=== PATIENT | female | born 1945 | race Caucasian/White ===

== ENCOUNTER 2019-04-28 15:43 | Emergency (ER) | payer MEDICARE ==
[~2019-04-28] VITALS: Ht 162.6 cm; Wt 95.2 kg
[2019-04-28] MEDS ORDERED: ROBAXIN-750750 MG PO (16:24)
[2019-04-28] MEDS ORDERED: ROXICODONE15 MG PO (16:25)
[2019-04-28] MEDS ORDERED: OMEPRAZOLE20 MG PO (16:25)
[2019-04-28] MEDS ORDERED: MAGNESIUM500 MG PO (16:26)
[2019-04-28] MEDS ORDERED: TIZANIDINE HCL4 M1 PO (16:26)
[2019-04-28] MEDS ORDERED: SUCRALFATE1 GM PO (16:26)
[2019-04-28] MEDS ORDERED: BISOPROLOL FUMAR5 MG PO (16:27)
[2019-04-28] MEDS ORDERED: RESTASIS1 DROP OD (16:27)
[2019-04-28] MEDS ORDERED: BUMETANIDE1 MG PO (16:27)
[2019-04-28] MEDS ORDERED: CYANOCOBAL1000 MCG/M IM (16:28)
[2019-04-28] MEDS ORDERED: TIROSINT88 MCG PO (16:28)
[2019-04-28] MEDS ORDERED: FLUNISOLIDE1 SPRAY (16:28)
[2019-04-28] MEDS ORDERED: NITROGLYCERIN0.4 MG SL (16:29)
[2019-04-28] MEDS ORDERED: MIRAPEX0.5 MG PO (16:29)
[2019-04-28] MEDS ORDERED: TRAZODONE HCL100 MG PO (16:29)
[2019-04-28] MEDS ORDERED: MULTIVITAMINS1 EAC7 PO (16:30)
[2019-04-28] MEDS ORDERED: K-TAB ER20 MEQ PO (16:30)
[2019-04-28] MEDS ORDERED: VENTOLIN HFA18 GM INH (16:30)
[2019-04-28] MEDS ORDERED: ASPIR 8181 MG PO (16:31)
[2019-04-28] MEDS ORDERED: COENZYME Q10200 MG PO (16:31)
[2019-04-28] MEDS ORDERED: CHROMIUM PIC1000 MCG PO (16:31)
[2019-04-28] MEDS ORDERED: CLARITIN10 M2 PO (16:32)
[2019-04-28] MEDS ORDERED: RIBOFLAVIN100 MG PO (16:32)
[2019-04-28] MEDS ORDERED: VISTARIL25 MG PO (16:33)
[2019-04-28] MEDS ORDERED: CEFUROXIME250 MG PO (19:37)
== END 2019-04-28 19:55 | disposition home or self-care (01) ==
LOC: ED 15:43
DX: N39.0 Urinary tract infection, site not specified (principal); Z98.1 Arthrodesis status; Z87.891 Personal history of nicotine dependence; Z88.6 Allergy status to analgesic agent; Z88.2 Allergy status to sulfonamides; Z88.8 Allergy status to other drugs, medicaments and biological substances; Z88.5 Allergy status to narcotic agent; Z91.040 Latex allergy status; Z88.0 Allergy status to penicillin; Z91.012 Allergy to eggs; Z91.011 Allergy to milk products; Z79.899 Other long term (current) drug therapy; Z79.51 Long term (current) use of inhaled steroids; Z79.82 Long term (current) use of aspirin
CPT/HCPCS: 36415; 72110; 80053; 81001; 85025; 96372; 99283-25; J0696